=== PATIENT | female | born 1935 | race Caucasian/White ===

== ENCOUNTER 2021-08-25 11:13 | Outpatient (CLI) | payer MEDICARE, MEDICAID, SELFPAY ==
[2021-08-25 13:06] LABS: Anion Gap 10 mmol/L (8-16); Blood Urea Nitrogen 14 mg/dL (7-18); Carbon Dioxide 32 mmol/L (21-32); Chloride 101 mmol/L (98-108); Estimated Glomerular Filt Rate 59; Glucose 200 mg/dL (70-99); Osmolality Calculated 302 mOsm/kg (285-295); Potassium 3.6 mmol/L (3.5-5.1); Sodium 143 mmol/L (136-145)
== END 2021-08-25 11:14 | disposition home or self-care (01) ==
LOC: CHSLAB 11:17
PROVIDERS: PCP Family Medicine; Visit Provider Anesthesiology
DX: E11.9 Type 2 diabetes mellitus without complications (principal)
CPT/HCPCS: 36415; 80048

== ENCOUNTER 2021-08-27 00:59 | Day surgery (SDC) | payer MEDICARE, MEDICAID, SELFPAY ==
--- NOTE | 2021-08-18 15:16 | PC.NURSE ---
Report to the Outpatient Waiting Room, entrance under the green pavilion located off [facility], at time _0615_ on date _08/27/21__. OR Time: _0815__. - You and your visitor will be asked a series of questions to screen for COVID 19 for your protection. - A mask is required within the hospital. - Only one visitor is allowed at this time. Patient visitors will be guided where to wait when not with patient. Preoperative COVID Testing Requirements: No COVID Test needed if: (proof is required; if not received patient will have Rapid Test prior to entry) - Patient has received COVID Vaccine at least 14 days prior to procedure date or - Patient has positive COVID test result within last 90 days of surgery date. COVID Test needed if above criteria is not met If not COVID vaccinated a COVID test must be conducted within 72 hours of surgery and patient is asked to isolate self from time of testing until procedure. You will go to the [facility] for your COVID testing. The [facility] is located at the corner of [address] [facility]. You will only be called if COVID results are positive and your surgeon may reschedule your elective surgery date. Patients may have clear liquids (water, carbonated beverages, clear teas, apple juice) until 3 hours prior to surgery (0515 AM) with a maximum of 20 ounces. - No food from midnight until time of surgery - Infants may have breast milk until 4 hours before surgery, formula 6 hours prior to surgery. - Children will be allowed to drink immediately following surgery. If applicable, please bring a bottle or sippy cup to assist with drinking. Juice, water, soda, and popsicles are readily available. For infants on formula, please bring formula the day of surgery. Pacifiers are allowed. Take the following medications with a SIP of water the morning of surgery: ___METOPROLOL Medications to discontinue per physician __VITAMIN D3, CALTRATE Date to take last dose____08/23/21 Please no make-up, nail tuvaluan, hairspray, perfume, deodorant, or body powder the day of surgery. No jewelry (including any body piercings) or valuables the day of surgery, leave them at home. Please take a shower or bath the night before, or the morning of, surgery with an antibacterial soap. Wear comfortable, loose fitting clothing. Children are encouraged to wear pajamas. - Jewelry must be removed prior to entering the operating room. Rings and piercings that are not removed may be cut off. - The hospital will not accept responsibility for valuables. - Please leave all valuables, including medications, at home the day of surgery. If you are going home after surgery, a licensed road oiling truck driver must drive you home. - NO public transportation without another adult. - We recommend that an adult stay with you for 24 hours following discharge. - We also recommend that you do not drive, make important decision, drink alcoholic beverages, or take any drugs that were not prescribed by your health care provider for at least 24 hours after your discharge time. For Pediatric surgeries, we recommend two adults accompany the child home (only one inside the building at this time). Follow any additional instructions given to you from your surgeon. Telephone instructions given to __MIREYA___and asked if any additional questions and then verbalized understanding. Patient advised to call surgeon office or pre surgery nurse liaison [phone] if any additional questions.
[2021-08-27 07:00] VITALS: BP 167/77; PULSE 71; RESP 18; TEMP 37; O2SAT 97; BMI 39.6
--- NOTE | 2021-08-27 07:07 | P.PNAN_ITS ---
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 Patient Data Age: 86 Gender: F Height: 1.64 m Weight: Allergies Allergy/AdvReac Type Severity Reaction Status Date / Time Latex, Natural Rubber AdvReac Unknown Verified 08/18/21 14:55 Penicillins AdvReac Hives/POSSIBLE Verified 08/18/21 14:55 THROAT SWELLING Home Medications Medication Instructions Recorded Confirmed Type calcium carbonate-vitamin D3 1 tablet PO BID 08/18/21 08/18/21 History [Caltrate 600 plus D] cholecalciferol (vitamin D3) 125 mcg DAILY 08/18/21 08/18/21 History [Vitamin D3] glipizide 5 mg DAILY 08/18/21 08/18/21 History lisinopril-hydrochlorothiazide 1 tablet DAILY 08/18/21 08/18/21 History metformin 1,000 mg BID 08/18/21 08/18/21 History metoprolol succinate 25 mg PO DAILY 08/18/21 08/18/21 History potassium chloride [Klor-Con 10] 10 meq PO DAILY 08/18/21 08/18/21 History triamcinolone acetonide See Rx Instructions .ROUTE .COMPLEX 08/18/21 08/18/21 History Patient hx anesthesia problems: none Family hx anesthesia problems: none Results Review: All pre-operative results and documents have been reviewed as part of the pre-operative evaluation. [facility] Past Medical History Medical History Arthritis Dementia Diabetes Hypertension Social History Social History Smoking status: Former smoker Tobacco type: cigarettes Second hand tobacco smoke exposure: No Alcohol intake: current Alcohol use details: WINE MAYBE TWICE A YEAR Substance use: never Substance use type: does not use Living arrangements: alone Spiritual care concerns: No Anes - Eval Final PreProcedure Day of Procedure 08/27/21 07:07 Patient weight: obese Heart: regular rate and rhythm Lungs: clear to auscultation Airway: Mallampati scale class II Neurological: other (alert) Last oral intake: >/= 8 hours ASA classification: III Emergent: no Anesthetic plan: proceed Anesthesia type and monitoring: general LMA and standard monitoring Results Review: All pre-operative results and documents have been reviewed as part of the pre-operative evaluation. Informed Consent: The patient's anesthetic plan and its attendant risks and benefits were discussed with the patient/family/POA. Questions were solicited and answers provided to the satisfaction of the patient/family/POA.
--- NOTE | 2021-08-27 07:15 | WPDHPUPDATE1 ---
History and Physical Update Update Date/Time: 08/27/21 07:15 History and Physical has been reviewed, including an updated exam of the patient. There are NO changes in the patient's condition. Risks, benefits, and alternatives have been discussed and questions answered. Patient agrees to proceed with procedure.
[2021-08-27 07:27] LABS: Glucose Point of Care 124 mg/dl (65-105)
[2021-08-27] MEDS: LACTATED RINGERS 1,000 ML 30 ML IV CONT (07:30)
[2021-08-27] MEDS: BALANCED SALT SOLN OPHTH IRRIG 30 ML BTL EACH EYE (09:15)
[2021-08-27] MEDS: LIDO 1%/EPINEPHRINE 1:100,000 50 ML VIAL INFILTRATE (10:03)
[2021-08-27] MEDS: BACITRACIN OINTMENT 15 GM TUBE 1 APPLIC TOPICAL (10:04)
[2021-08-27 10:15] VITALS: BP 108/52; PULSE 65; RESP 10; O2SAT 93
[2021-08-27 10:23] LABS: Glucose Point of Care 130 mg/dl (65-105)
--- NOTE | 2021-08-27 10:34 | W.PM.PROC2 ---
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 He reported skin cancer of the left nasal sidewall, type deferred for permanent section Description of Procedure The 2 sites on the patient's face were marked in the holding area with her and her spouse is consent. She was taken to the and placed supine on the operating table. She was given IV sedation. Face was prepped and draped in usual fashion. A time-out was held and confirmed. The sites were carefully examined under loupe magnification and operating room lights. Markings were placed on the skin for planned excision. These areas were infiltrated with 1% lidocaine with epinephrine. The lesion from the nose was taken 1st with an estimated 3 mm margin this extends on the sidewall of the nose and the orbicularis towards the eye. The most superior aspect was marked with a suture for 12 o'clock. The tissue was taken off from the surface of the orbicularis and muscles of the sidewall. The specimen was sent for frozen section. The pathologist revealed that this was a skin cancer with basal and squamous cell characteristics and he is deferring is final diagnosis for permanent sections. Margins were free. The closure was accomplished by wide undermining extending more than a cm and a half in the inferior and lateral directions and over the left nasal sidewall extending to the dorsum of the nose. This process divided some of the dense nasal labial groove support fibers to the periosteum. This wide undermining allowed apposition of the wound margins without deformity to the lower lid or the nose. This approximation was retained with deep intradermal 4-0 Vicryl sutures at multiple sites in standing cone was removed from the caudal and . The skin was closed with a running 5 0 nylon. The midline upper forehead lesion was taken out as a full-thickness skin ellipse that extended into the subcutaneous tissue. The this was sent to pathology with a suture marking the superior 12:00 p.m. aspect. The report was basal cell carcinoma with free margins. The wound edges were undermined a minimum of 5 mm in all directions and the closure was achieved with intradermal 4-0 Vicryl. Glue was applied on the skin surface. There were no complications. The patient was discharged with instructions in wound care follow-up she has a prescription for tramadol 50 mg number 8 sent to her pharmacy Estimated Blood Loss 5 Drains No Packing No Pathology yes Complications No immediate complications Condition stable Disposition same day
[2021-08-27 10:45] VITALS: BP 137/59; PULSE 64; RESP 16
[2021-08-27 11:15] VITALS: BP 148/54; PULSE 60; RESP 16
== END 2021-08-27 11:25 | disposition home or self-care (01) ==
PROVIDERS: PCP Family Medicine; Visit Provider Plastic Surgery
PROC: (CPT 11641; principal; 2021-08-27 08:15)
DX: C44.319 Basal cell carcinoma of skin of other parts of face (principal); C44.311 Basal cell carcinoma of skin of nose; I10 Essential (primary) hypertension; E11.9 Type 2 diabetes mellitus without complications; F03.90 Unspecified dementia, unspecified severity, without behavioral disturbance, psychotic disturbance, mood disturbance, and anxiety; Z79.84 Long term (current) use of oral hypoglycemic drugs; E66.9 Obesity, unspecified; Z68.39 Body mass index [BMI] 39.0-39.9, adult
CPT/HCPCS: 11641; 12052; 11642; 13152; 82948; 88305; 88331; A9270; J2405; J2704; J3010; J7120

== ENCOUNTER 2023-05-10 13:05 | Outpatient (CLI) | payer MEDICARE, MEDICAID, SELFPAY ==
--- NOTE | ~2023-05-10 | XR_ITS ---
EXAMINATION: XR shoulder RT min 2V DATE: 05/10/2023 13:33 INDICATION: Right shoulder pain radiating down the right arm TECHNIQUE: AP internally and externally rotated, AP oblique externally rotated and transscapular Y vi ews of the right shoulder were obtained. COMPARISON: None FINDINGS: Normal alignment. No fracture.Mild right glenohumeral and acromioclavicular osteoarthritis. Suggesti ng mild cystlike changes in the region of the lesser tuberosity which can be seen with chronic rotato r cuff cuff disease. Soft tissues are unremarkable. Right lung volume appears small with no focal air space opacities, pleural effusion or pneumothorax. IMPRESSION: Mild right glenohumeral and acromioclavicular osteoarthritis. Reviewed, dictated and finalized at location A.
== END 2023-05-10 13:06 | disposition home or self-care (01) ==
LOC: CHSIMG 13:12
PROVIDERS: PCP Family Medicine; Visit Provider Family Medicine
DX: M25.511 Pain in right shoulder (principal); M19.011 Primary osteoarthritis, right shoulder
CPT/HCPCS: 73030

== ENCOUNTER 2023-06-21 10:07 | Emergency (ER) | payer MEDICARE, MEDICAID, SELFPAY ==
--- NOTE | ~2023-06-21 | XR_ITS ---
EXAMINATION: XR humerus RT DATE: 06/21/2023 10:43 INDICATION: Right shoulder pain. TECHNIQUE: 2 views of right humerus on 4 radiographs were obtained. COMPARISON: Right shoulder radiographs 05/10/2023 FINDINGS: Bone alignment is normal. No fracture. There is mild osteoarthritis of glenohumeral joint a nd acromioclavicular joint. IMPRESSION: 1. Mild polyarticular osteoarthritis. Reviewed, dictated and finalized at location A.
--- NOTE | ~2023-06-21 | US_ITS ---
EXAMINATION: US venous doppler UE RT DATE: 06/21/2023 10:59 INDICATION: Right upper limb swelling. TECHNIQUE: Grayscale ultrasound images without and with compression and Doppler ultrasound images of the right upper extremity veins were obtained. COMPARISON: None. FINDINGS: The visualized portions of the right internal jugular vein, subclavian vein, axillary vein, brachial veins, basilic vein, cephalic vein, radial vein, and ulnar vein are patent. IMPRESSION: 1. No deep venous thrombosis. Reviewed, dictated and finalized at location A.
--- NOTE | ~2023-06-21 | XR_ITS ---
EXAMINATION: XR shoulder RT min 2V DATE: 06/21/2023 10:43 INDICATION: Right shoulder pain. TECHNIQUE: 4 views of right shoulder were obtained. COMPARISON: Right shoulder radiographs 05/10/2023 FINDINGS: Bone alignment is normal. No fracture. There is mild osteoarthritis of right glenohumeral j oint and right acromioclavicular joint. IMPRESSION: 1. Mild polyarticular osteoarthritis. Reviewed, dictated and finalized at location A.
[2023-06-21 10:08] VITALS: BP 146/76; PULSE 76; RESP 19; TEMP 36.9; O2SAT 96
--- NOTE | 2023-06-21 10:17 | ED.GENADULT ---
HPI - General Adult General Chief complaint: Extremity Injury, Upper Stated complaint: Fall/ shoulder pain Time Seen by Provider: 06/21/23 10:09 History of Present Illness HPI narrative: 88-year-old female presenting with right upper extremity pain. Patient states he fell several weeks ago. She states she sustained injury to her right upper extremity during that time. She states her right upper extremity has been sore but her pain worsened last night. She states she felt a pop in her right upper extremity last night and had pain has increased since then. She denies any new injury to the area. Related Data Home Medications Medication Instructions Recorded Confirmed calcium carbonate 600 mg-vitamin 1 tablet PO BID 08/18/21 08/18/21 D3 20 mcg (800 unit) chewable tablet (Caltrate 600 plus D) cholecalciferol (vitamin D3) 125 125 mcg DAILY 08/18/21 08/18/21 mcg (5,000 unit) tablet (Vitamin D3) glipizide 5 mg tablet 5 mg DAILY 08/18/21 08/18/21 lisinopril 20 1 tablet DAILY 08/18/21 08/18/21 mg-hydrochlorothiazide 12.5 mg tablet metformin 1,000 mg tablet 1,000 mg BID 08/18/21 08/18/21 metoprolol succinate 25 mg 25 mg PO DAILY 08/18/21 08/27/21 tablet,extended release 24 hr potassium chloride 10 mEq 10 meq PO DAILY 08/18/21 08/18/21 tablet,extended release (Klor-Con) triamcinolone acetonide 0.1 % See Rx Instructions .Route .COMPLEX 08/18/21 08/18/21 topical cream Allergies Allergy/AdvReac Type Severity Reaction Status Date / Time Latex, Natural Rubber AdvReac Unknown Verified 06/21/23 10:21 Penicillins AdvReac Hives/POSSIBLE Verified 06/21/23 10:21 THROAT SWELLING PMFSH Past Medical History Medical History Arthritis Dementia Diabetes Hypertension Social History Social History Smoking status: Former smoker Tobacco type: cigarettes Second hand tobacco smoke exposure: No Alcohol intake: current Alcohol use details: WINE MAYBE TWICE A YEAR Substance use: never Substance use type: does not use Living arrangements: alone Spiritual care concerns: No Exam Narrative: Old-appearing bruising to the right humerus. No palpable deformities. Tenderness palpation of the humerus and right shoulder. Neurovascularly intact. All other systems otherwise unremarkable. Course Vital Signs Vital signs: Vital Signs Temperature 36.9 C 06/21/23 10:08 Pulse Rate 76 06/21/23 10:08 Respiratory Rate 19 06/21/23 10:08 Blood Pressure 146/76 H 06/21/23 10:08 Pulse Oximetry 96 06/21/23 10:08 Oxygen Delivery Room Air 06/21/23 10:08 Temperature 36.9 C 06/21/23 10:08 Pulse Rate 76 06/21/23 10:08 Respiratory Rate 19 06/21/23 10:08 Blood Pressure 146/76 H 06/21/23 10:08 Pulse Oximetry 96 06/21/23 10:08 Oxygen Delivery Room Air 06/21/23 10:08 Medical Decision Making MDM Narrative Medical decision making narrative: Differential includes but not limited to soft tissue injury versus dislocation versus fracture. Will evaluate with imaging. my interpretation and official read of imaging is without acute pathological findings. This is most likely a soft tissue injury. If symptoms persist patient will most likely benefit from an MRI. Will provide a referral to an orthopedist. We will also provide a prescription for Voltaren gel. Patient appears well. She is nontoxic appearing. He has no reflux symptomatology. She felt like proceed outpatient management. Vital Signs Vital Signs: Vital Signs Temperature 36.9 C 06/21/23 10:08 Pulse Rate 76 06/21/23 10:08 Respiratory Rate 19 06/21/23 10:08 Blood Pressure 146/76 H 06/21/23 10:08 Pulse Oximetry 96 06/21/23 10:08 Oxygen Delivery Room Air 06/21/23 10:08 Temperature 36.9 C 06/21/23 10:08 Pulse Rate 76 06/21/23 10:08 Respiratory Rate 1
[2023-06-21 11:55] VITALS: BP 140/72; PULSE 74; RESP 20; TEMP 36.8; O2SAT 97
== END 2023-06-21 11:57 | disposition home or self-care (01) ==
PROVIDERS: Emergency Provider Emergency Medicine; PCP Internal Medicine
DX: M25.511 Pain in right shoulder (principal); M79.89 Other specified soft tissue disorders; E11.9 Type 2 diabetes mellitus without complications; I10 Essential (primary) hypertension; F03.90 Unspecified dementia, unspecified severity, without behavioral disturbance, psychotic disturbance, mood disturbance, and anxiety; Z87.891 Personal history of nicotine dependence; W19.XXXA Unspecified fall, initial encounter
CPT/HCPCS: 73030; 73060; 93971; 99284; A4565

== ENCOUNTER 2023-07-05 11:58 | Emergency (ER) | payer MEDICARE, MEDICAID, SELFPAY ==
--- NOTE | ~2023-07-05 | US_ITS ---
EXAMINATION: US venous doppler [facility] DATE: 07/05/2023 13:58 INDICATION: Lower limb swelling. TECHNIQUE: Grayscale ultrasound images without and with compression and Doppler ultrasound images of the bilateral lower extremity veins were obtained. COMPARISON: None. FINDINGS: The visualized portions of right common femoral vein, profunda (deep) femoral vein, femoral vein, pop liteal vein, peroneal veins, posterior tibial veins, and greater saphenous vein outflow are patent. T here is a moderate-sized Joyce's cyst. The visualized portions of left common femoral vein, profunda femoral vein, femoral vein, popliteal v ein, peroneal veins, posterior tibial veins, and greater saphenous vein outflow are patent. IMPRESSION: 1. No deep venous thrombosis. 2. Moderate-sized right Joyce's cyst. Reviewed, dictated and finalized at location A.
--- NOTE | ~2023-07-05 | XR_ITS ---
EXAMINATION: XR chest 2V 07/05/2023 12:49 INDICATION: Bilateral leg swelling. PROCEDURE: 2 view chest COMPARISON: No prior studies for comparison. FINDINGS: The lungs are clear. The cardiomediastinal silhouette is within normal limits. There are no pleural effusions. There is no pneumothorax suspected. Severe lumbar spondylosis with scoliosis. IMPRESSION: 1: NO ACUTE CARDIOPULMONARY DISEASE. Reviewed, dictated and finalized at location B.
[2023-07-05 12:08] VITALS: BP 115/94; PULSE 77; RESP 20; TEMP 36.8; O2SAT 96
--- NOTE | 2023-07-05 12:11 | ED.EXTPRO ---
HPI - Extremity Problem General Chief complaint: Extremity Problem,Nontraumatic Stated complaint: swollen leg/feet Time Seen by Provider: 07/05/23 12:11 Source: patient Mode of arrival: ambulatory Limitations: no limitations History of Present Illness HPI Narrative: 88 year old female presents to the Emergency Department with family. Patient complains of bilateral leg swelling. Onset a week ago. Denies shortness of breath. Denies history of CHF. Denies chest pain. Patient was in [place] for 8 days. Has been on feet more recently. MD Complaint: extremity swelling Onset (ago): day(s) (8) Location: lower extremity Relieving factors: nothing Exacerbating factors: nothing Associated symptoms: denies other symptoms Context: recent travel Related Data Home Medications Medication Instructions Recorded Confirmed calcium carbonate 600 mg-vitamin 1 tablet PO BID 08/18/21 08/18/21 D3 20 mcg (800 unit) chewable tablet (Caltrate 600 plus D) cholecalciferol (vitamin D3) 125 125 mcg DAILY 08/18/21 08/18/21 mcg (5,000 unit) tablet (Vitamin D3) glipizide 5 mg tablet 5 mg DAILY 08/18/21 08/18/21 lisinopril 20 1 tablet DAILY 08/18/21 08/18/21 mg-hydrochlorothiazide 12.5 mg tablet metformin 1,000 mg tablet 1,000 mg BID 08/18/21 08/18/21 metoprolol succinate 25 mg 25 mg PO DAILY 08/18/21 08/27/21 tablet,extended release 24 hr potassium chloride 10 mEq 10 meq PO DAILY 08/18/21 08/18/21 tablet,extended release (Klor-Con) triamcinolone acetonide 0.1 % See Rx Instructions .Route .COMPLEX 08/18/21 08/18/21 topical cream Allergies Allergy/AdvReac Type Severity Reaction Status Date / Time Latex, Natural Rubber AdvReac Unknown Verified 06/21/23 10:21 Penicillins AdvReac Hives/POSSIBLE Verified 06/21/23 10:21 THROAT SWELLING Review of Systems Review of Systems: All systems reviewed & are unremarkable except as noted in HPI and below Constitutional: Constitutional: Reports as per HPI Eyes: Eyes: Reports as per HPI ENT: Reports system reviewed and no additional complaints, except as documented Cardiovascular: Cardiovascular: Reports as per HPI and Denies chest pain Respiratory: Respiratory: Reports as per HPI, Reports no additional respiratory complaints, Denies chest congestion, Denies cough and Denies dyspnea Gastrointestinal: Gastrointestinal: Reports as per HPI, Denies abdominal pain, Denies diarrhea, Denies nausea and Denies vomiting Genitourinary: Genitourinary: Reports no additional female genitourinary complaints Musculoskeletal: Musculoskeletal: Reports no additional musculoskeletal complaints Integumentary/Breasts: Skin/Breast: Reports system reviewed and no additional complaints, except as docu Neurologic: Reports system reviewed and no additional complaints, except as documented [facility] Past Medical History Medical History Arthritis Dementia Diabetes Hypertension Social History Social History Smoking status: Former smoker Tobacco type: cigarettes Second hand tobacco smoke exposure: No Alcohol intake: current Alcohol use details: WINE MAYBE TWICE A YEAR Substance use: never Substance use type: does not use Living arrangements: alone Spiritual care concerns: No Exam Const: General: healthy appearing and no acute distress Nutritional Appearance: obese Orientation/consciousness: patient oriented x3 Limitations: no limitations HENMT: Head: normal to inspection Ears: external ears normal Face/Nose/Sinus: Normal external nose present Face and sinus: normal facial exam Mouth: Yes Normal oral and palatal mucosa present Teeth and gingiva: dentition normal Throat: posterior oropharynx normal Eyes: Conjunctivae: conjunctivae normal Pupils: Equal, round and reactive pupils present EOM: EOMs intact bilaterally Direct Ophthalmoscopy: no photophobi
--- NOTE | 2023-07-05 12:16 | ECG_ITS ---
Measurements Intervals [place] Rate: 61 P: 58 [place]: 189 QRS: -50 QRSD: 90 T: 3 QT: 401 QTc: 404 Interpretive Statements SINUS RHYTHM LOW QRS VOLTAGE IN PRECORDIAL LEADS [QRS DEFLECTION < 1.0 mV IN CHEST LEADS] POSSIBLE ANTERIOR MYOCARDIAL INFARCTION , OF INDETERMINATE AGE [30 ms Q WAVE IN V3/V4, OR R < 0.2 mV IN V4] INFERIOR MYOCARDIAL INFARCTION , PROBABLY OLD WITH POSTERIOR EXTENSION [40+ ms Q WAVE AND/OR ST/T ABNORMALITY IN II/aVFPROMINE ABNORMAL ECG NO PREVIOUS ECG AVAILABLE FOR COMPARISON Electronically Signed On 07-05-2023 13:41:33 CDT by Alf Hudson M.D.
[2023-07-05 12:39] LABS: Basophils Absolute Auto 0.04 K/mm3 (0.00-0.10); Basophils Percent Auto 0.7 % (0.0-1.0); Eosinophils Percent Auto 3.4 % (1.0-6.0); Hematocrit 38.6 % (35.0-42.0); Immature Granulocyte Absolute 0.01 K/mm3 (0.00-0.00); Immature Granulocyte Percent A 0.2 % (0.0-0.0); Lymphocytes Absolute Auto 2.18 K/mm3 (1.10-4.50); Lymphocytes Percent Auto 37.2 % (18.0-42.0); Mean Corpuscular HGB Conc 33.7 g/dL (32.0-36.0); Mean Corpuscular Hemoglobin 31.3 pg (27.0-31.0); Mean Corpuscular Volume 92.8 fL (78.0-102.0); Monocytes Absolute Auto 0.53 K/mm3 (0.10-0.90); Neutrophils Absolute Auto 2.9 K/mm3 (1.7-7.2); Neutrophils Percent Auto 49.5 % (50.0-70.0); Platelet Count Result 149 K/mm3 (150-420); Red Blood Count 4.16 M/mm3 (4.20-5.40); Red Cell Distribution Width 12.7 % (11.6-14.4); White Blood Count 5.9 K/mm3 (4.8-10.8)
[2023-07-05 12:58] LABS: D Dimer 1.79 mg/L (0.19-0.50)
--- NOTE | 2023-07-05 12:58 | PC.NURSE ---
LAB REPORTS ELEVATED DDIMER OF 1.79, ERP MADE AWARE.
[2023-07-05 13:05] LABS: NT Pro B Type Natriuretic Pept 275 pg/mL (0-450)
[2023-07-05 13:13] LABS: Alanine Aminotransferase 29 U/L (14-59); Albumin Level 2.9 g/dL (3.4-5.0); Alkaline Phosphatase 67 U/L (46-116); Bilirubin,Total 0.4 mg/dL (0.00-1.00); Blood Urea Nitrogen 17 mg/dL (7-18); Calcium 9.1 mg/dL (8.5-10.1); Carbon Dioxide 25 mmol/L (21-32); Estimated CRCL calculation 41 ml/min; Estimated Glomerular Filt Rate 58; Glucose 186 mg/dL (70-99); Total Protein 6.4 g/dL (6.4-8.2)
[2023-07-05 13:14] LABS: Anion Gap 11 mmol/L (8-16); Chloride 104 mmol/L (98-108); Osmolality Calculated 296 mOsm/kg (285-295); Sodium 140 mmol/L (136-145)
[2023-07-05 13:23] LABS: Aspartate Amino Transferase 25 U/L (15-37)
[2023-07-05 14:37] VITALS: BP 178/71; PULSE 74; RESP 18; TEMP 36.4; O2SAT 98
== END 2023-07-05 14:55 | disposition home or self-care (01) ==
PROVIDERS: Emergency Provider Emergency Medicine; PCP Internal Medicine
DX: R60.0 Localized edema (principal); M71.21 Synovial cyst of popliteal space [Baker], right knee; I87.8 Other specified disorders of veins; E11.9 Type 2 diabetes mellitus without complications; I10 Essential (primary) hypertension; F03.90 Unspecified dementia, unspecified severity, without behavioral disturbance, psychotic disturbance, mood disturbance, and anxiety; Z87.891 Personal history of nicotine dependence; Z79.84 Long term (current) use of oral hypoglycemic drugs
CPT/HCPCS: 36415; 71046; 80053; 83880; 84484; 85025; 85380; 93005; 93970; 99284

== ENCOUNTER 2023-07-09 11:24 | Outpatient (CLI) | payer MEDICARE, MEDICAID, SELFPAY ==
--- NOTE | ~2023-07-09 | XR_ITS ---
Left Knee Technique: AP, lateral, and sunrise views were obtained. Clinical History: Pain Findings: No fracture or dislocation is seen. Osseous alignment is anatomic. Mild to moderate tricomp artmental degenerative changes present. Vascular calcifications are present. No joint effusion is see n. Impression: Mild to moderate tricompartmental degenerative change. Reviewed, dictated and finalized at location . Impression: Mild to moderate tricompartmental degenerative change.
--- NOTE | ~2023-07-09 | XR_ITS ---
Lumbosacral Spine: AP and lateral views Clinical History: Pain Findings: There is 26 degree dextroscoliosis of the lumbar spine. No fracture evident. There is 4 mm retrolisthesis of L2 over L3. There is moderate degenerative disc narrowing throughout the lumbar spi ne. There is moderate to severe facet arthropathy throughout the lumbar spine. The intervertebral dis c spaces are preserved. The sacroiliac joints are normally outlined. Suspected coccygeal fracture, l ikely chronic present. Extensive atherosclerotic calcifications of the aorta are present. Impression: Moderate degenerative spondylosis of the lumbar spine with 26 degree dextroscoliosis. Suspected chronic coccygeal fracture. Reviewed, dictated and finalized at location M. Impression: Moderate degenerative spondylosis of the lumbar spine with 26 degree dextroscol iosis. Suspected chronic coccygeal fracture.
--- NOTE | ~2023-07-09 | XR_ITS ---
Right Knee Technique: AP, lateral, and sunrise views were obtained. Clinical History: Pain Findings: No fracture or dislocation is seen. Osseous alignment is anatomic. Mild to moderate tricomp artmental degenerative change is present. Vascular calcifications are noted. No joint effusion is see n. Impression: Mild to moderate tricompartmental degenerative change. Reviewed, dictated and finalized at location . Impression: Mild to moderate tricompartmental degenerative change.
--- NOTE | ~2023-07-09 | XR_ITS ---
AP and lateral views of the bilateral hips Clinical history: Pain Findings: No acute fracture or dislocation is seen. Osseous alignment is anatomic. Bilateral hip and SI joint spaces are preserved. Soft tissues are unremarkable. Impression: No significant abnormality is seen. Reviewed, dictated and finalized at location . Impression: No significant abnormality is seen.
[2023-07-09 12:28] LABS: CRP 0.6 mg/dL (0.0-0.9); Thyroid Stimulating Hormone 1.16 uIU/mL (0.36-3.74); Uric Acid 5.3 mg/dL (2.6-6.0)
[2023-07-12 09:46] LABS: Hemoglobin A1C 7.5 % (<5.7)
== END 2023-07-09 11:25 | disposition home or self-care (01) ==
LOC: CHSLAB 11:27
PROVIDERS: PCP Internal Medicine; Visit Provider Internal Medicine
DX: R60.9 Edema, unspecified (principal); I10 Essential (primary) hypertension; M25.562 Pain in left knee; M25.561 Pain in right knee; M25.552 Pain in left hip; M25.551 Pain in right hip; M54.50 Low back pain, unspecified; R73.9 Hyperglycemia, unspecified; M43.06 Spondylolysis, lumbar region
CPT/HCPCS: 36415; 72100; 73521; 73562; 83036; 84443; 84550; 86140

== ENCOUNTER 2023-07-12 16:38 | Outpatient (CLI) | payer MEDICARE, MEDICAID, SELFPAY ==
[2023-07-12 16:48] LABS: Appearance Urine Clear (Clear); Bilirubin Urine Negative (Negative); Blood Urine Negative (Negative); Color Urine Yellow (Yellow); Glucose Urine UA Negative (Negative); Ketones Urine Negative (Negative); Leukocyte Esterase Ur Negative (Negative); Nitrate Urine Negative (Negative); Protein Urine Negative (Negative); Urobilinogen Urine 0.2 mg/dL (0.2-1.0); pH Urine 5.5 (5.0-8.0)
[2023-07-12 17:05] LABS: Add Urine Microscopic? NO
== END 2023-07-12 16:39 | disposition home or self-care (01) ==
LOC: CHSLAB 16:39
PROVIDERS: PCP Internal Medicine; Visit Provider Internal Medicine
DX: R60.9 Edema, unspecified (principal); I10 Essential (primary) hypertension; M25.552 Pain in left hip; M25.551 Pain in right hip; M25.562 Pain in left knee; M25.561 Pain in right knee; M54.50 Low back pain, unspecified
CPT/HCPCS: 81003

== ENCOUNTER 2024-03-20 01:26 | Emergency (ER) | payer MEDICARE, MEDICAID, SELFPAY ==
[2024-03-20] VITALS (32 sets, daily range): BP systolic 107–192; BP diastolic 57–135; PULSE 69–88; RESP 9–26; TEMP 36.5; O2SAT 94–98
--- NOTE | ~2024-03-20 | CT_ITS ---
CT head without contrast Indication: CVA, right-sided facial droop Technique: Serial scans were obtained through the brain without the administration of contrast. Dose reduction technique was used on this scan by utilizing automated exposure control and iterative recon struction technique. The dose-length product (DLP) was 605.33 mGy-cm. Findings: There is no evidence of intracranial hemorrhage, mass lesion, or acute infarct. The ventri cles and subarachnoid spaces are dilated, consistent with mild atrophy. There is no evidence of edema , mass effect or midline shift. The visualized paranasal sinuses and mastoid air cells are clear. Impression: No intracranial hemorrhage, mass, or acute infarct. Mild generalized atrophy. Reviewed, dictated and finalized at location . Impression: No intracranial hemorrhage, mass, or acute infarct. Mild generalized atrophy.
--- NOTE | ~2024-03-20 | CT_ITS ---
CT ANGIOGRAM NECK AND HEAD History: Right-sided facial droop, CVA. Technique: Serial spiral axial images through the head and neck were obtained during arterial phase I V injection of 100 cc of Omnipaque 350. 3-D postprocessing and MIP images were then reconstructed on the remote workstation. Dose reduction technique was used on this scan by utilizing automated exposur e control and iterative reconstruction technique. The dose-length product (DLP) was 982.20 mGy-cm. CTA neck findings: Bilateral vertebral arteries are patent, the right vertebral artery is diffusely, markedly hypoplastic. Aberrant right subclavian artery noted. Bilateral common carotid, internal car otid, and external carotid arteries are patent. There is calcified plaque at the origin of the left i nternal carotid artery with high-grade probable 80-90% stenosis focally. No stenosis of the right int ernal carotid artery. No large vessel occlusion. No aneurysm. The proximal right internal carotid art ld demonstrates 0% stenosis relative to the normal distal artery lumen diameter. The proximal left i nternal carotid artery demonstrates 80-90% stenosis relative to the normal distal artery lumen diamet er. CTA head findings: Basilar artery and posterior vertebral arteries are patent. There are atherosclero tic calcifications of the cavernous portions of the distal internal carotid arteries, with areas of m ild stenosis. Middle cerebral arteries and anterior cerebral arteries are patent. No large vessel occ lusion. No stenosis or aneurysm. 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 Consider duplex sonograph for further evaluation. No large vessel occlusion identified. Consider MR to further evaluate for acute infarct. Hypoplastic right vertebral artery. Reviewed, dictated and finalized at location . Impression: Probable focal high-grade stenosis at the origin of the left internal carotid a rtery. Consider duplex sonograph for further evaluation. No large vessel occlusion identified. Consider MR to further evaluate for acute infarct. Hypoplastic right vertebral artery.
--- NOTE | 2024-03-20 01:29 | ED.GENADULT ---
HPI - General Adult General Chief complaint: Suspected CVA Stated complaint: stroke symptoms Time Seen by Provider: 03/20/24 01:28 History of Present Illness HPI narrative: Leah is an 88F with a PMH of DMII, HTN, arthritis and dementia that presented to the ED via EMS for concerns of a CVA. She went to bed 3 hours before arrival and woke up not feeling normal. She had right sided facial droop, slurred speech and weakness on the right side in the upper and lower extremity. No Related Data Home Medications Medication Instructions Recorded Confirmed calcium carbonate 600 mg-vitamin 1 tablet PO BID 08/18/21 03/20/24 D3 20 mcg (800 unit) chewable tablet (Caltrate 600 plus D) cholecalciferol (vitamin D3) 125 125 mcg DAILY 08/18/21 03/20/24 mcg (5,000 unit) tablet (Vitamin D3) glipizide 5 mg tablet 5 mg DAILY 08/18/21 03/20/24 lisinopril 20 1 tablet DAILY 08/18/21 03/20/24 mg-hydrochlorothiazide 12.5 mg tablet metformin 1,000 mg tablet 1,000 mg BID 08/18/21 03/20/24 metoprolol succinate 25 mg 25 mg PO DAILY 08/18/21 03/20/24 tablet,extended release 24 hr potassium chloride 10 mEq 10 meq PO DAILY 08/18/21 03/20/24 tablet,extended release (Klor-Con) triamcinolone acetonide 0.1 % See Rx Instructions .Route .COMPLEX 08/18/21 03/20/24 topical cream Allergies Allergy/AdvReac Type Severity Reaction Status Date / Time Latex, Natural Rubber AdvReac Unknown Verified 03/20/24 01:41 Penicillins AdvReac Hives/POSSIBLE Verified 03/20/24 01:41 THROAT SWELLING Review of Systems Review of Systems: All systems reviewed & are unremarkable except as noted in HPI and below PMFSH Past Medical History Medical History Arthritis Dementia Diabetes Hypertension Social History Social History Smoking status: Former smoker Tobacco type: cigarettes Second hand tobacco smoke exposure: No Alcohol intake: current Alcohol use details: WINE MAYBE TWICE A YEAR Substance use: never Substance use type: does not use Living arrangements: alone Spiritual care concerns: No Exam Const: General: cooperative, comfortable, well developed, alert, awake and Physically active Orientation/consciousness: oriented to person, oriented to place and oriented to time HENMT: Head: normal to inspection, normocephalic and atraumatic Ears: hearing grossly normal bilaterally and external ears normal Face/Nose/Sinus: Normal external nose present Eyes: General: appearance normal, both eyes and all related structures Periorbital: periorbital findings normal Sclera: sclerae normal Pupils: Equal, round and reactive pupils present Neck: Neck: normal visual inspection Chest: Chest palpation & inspection: normal inspection of the chest Resp: Effort & Inspection: normal respiratory effort, able to speak in complete sentences and no respiratory distress Auscultation: clear to auscultation bilaterally Cardio: Jugular venous distension: no JVD Rate: regular rate Rhythm: regular rhythm GI: Inspection: normal to inspection GI Palp: Yes Soft to palpation Auscultation: normal bowel sounds Skin: General skin exam: normal color and no rashes or lesions noted Neuro: General: oriented to person and oriented to place Cranial nerves: Yes Equal, round and reactive pupils present Other: She had right sided facial paralysis/droop, right sided weakness in the upper and lower extremities and slurred speech. NIH stroke scale of 8. Extrem: General: normal to inspection Course Course Emergency Course: Ordered stat CT brain for suspected CVA. Ordered labs and EKG as well. EKG showed NSR with a rate of 76, first degree AV block, left anterior fasicular block CT Brain: No intracranial hemorrhage, mass effect or edema. No evidence of acute cortical stroke. Age-related cerebral atrophy. Chronic small vessel
--- NOTE | 2024-03-20 01:34 | ECG_ITS ---
Test Date: 2024-03-20 01:44:36 Measurements Intervals [place] Rate: 76 P: 23 [place]: 256 QRS: -70 QRSD: 108 T: 21 QT: 369 QTc: 417 Interpretive Statements SINUS RHYTHM WITH FIRST DEGREE AV BLOCK LOW QRS VOLTAGE IN PRECORDIAL LEADS [QRS DEFLECTION < 1.0 mV IN CHEST LEADS] LEFT ANTERIOR FASCICULAR BLOCK [QRS AXIS <= -45, QR IN I, RS IN II] POSSIBLE ANTERIOR MYOCARDIAL INFARCTION , PROBABLY OLD [30 ms Q WAVE IN V3/V4, OR R < 0.2 mV IN V4] No previous ECG available for comparison Electronically Signed On 03-21-2024 13:20:05 CDT by Hamzah Alegria M.D.
[2024-03-20 01:36] LABS: Glucose Point of Care 270 mg/dl (65-105)
[2024-03-20 02:19] LABS: Basophils Absolute Auto 0.05 K/mm3 (0.00-0.10); Basophils Percent Auto 0.9 % (0.0-1.0); Eosinophils Absolute Auto 0.22 K/mm3 (0.02-0.50); Eosinophils Percent Auto 3.7 % (1.0-6.0); Hematocrit 41.6 % (35.0-42.0); Hemoglobin 13.6 g/dL (11.7-13.8); Immature Granulocyte Absolute 0.01 K/mm3 (0.00-0.00); Immature Granulocyte Percent A 0.2 % (0.0-0.0); Immature Platelet Fraction Pct 3.5 % (1.0-7.0); Lymphocytes Absolute Auto 2.22 K/mm3 (1.10-4.50); Lymphocytes Percent Auto 37.8 % (18.0-42.0); Mean Corpuscular HGB Conc 32.7 g/dL (32-36); Mean Corpuscular Hemoglobin 29.8 pg (27.0-31.0); Mean Corpuscular Volume 91.2 fL (78.0-102.0); Mean Platelet Volume 11.3 fl (9.2-11.8); Monocytes Absolute Auto 0.56 K/mm3 (0.10-0.90); Monocytes Percent Auto 9.5 % (2.0-11.0); Neutrophils Absolute Auto 2.81 K/mm3 (1.70-7.20); Neutrophils Percent Auto 47.9 % (50.0-70.0); Platelet Count Result 131 K/mm3 (150-420); Red Blood Count 4.56 M/mm3 (4.20-5.40); Red Cell Distribution Width 12.1 % (11.6-14.4); White Blood Count 5.9 K/mm3 (4.8-10.8)
[2024-03-20 02:29] LABS: Prothrombin Time 10.7 Seconds (9.50-12.1)
[2024-03-20 02:50] LABS: Alanine Aminotransferase 26 U/L (14-59); Albumin Level 3.2 g/dL (3.4-5.0); Alkaline Phosphatase 64 U/L (46-116); Anion Gap 9 mmol/L (4-12); Aspartate Amino Transferase 27 U/L (15-37); Bilirubin,Total 0.3 mg/dL (0.00-1.00); Blood Urea Nitrogen 22 mg/dL (7-18); Carbon Dioxide 26 mmol/L (21-32); Chloride 104 mmol/L (98-108); Estimated CRCL calculation 35 ml/min; Estimated Glomerular Filt Rate 50; Glucose 238 mg/dL (70-99); Osmolality Calculated 299 mOsm/kg (285-295); Potassium 3.6 mmol/L (3.5-5.1); Sodium 139 mmol/L (136-145); Troponin I 6.2 ng/L (0.00-60.4)
[2024-03-20 03:59] LABS: Appearance Urine Clear (Clear); Bilirubin Urine Negative (Negative); Blood Urine 1+ (Negative); Color Urine Light Yellow (Yellow); Glucose Urine UA 1+ (Negative); Ketones Urine Negative (Negative); Leukocyte Esterase Ur 2+ LEU/UL (Negative); Nitrate Urine Negative (Negative); Protein Urine Negative (Negative); Specific Grav Ur 1.015 (1.010-1.020); Urobilinogen Urine 0.2 mg/dL (0.2-1.0)
[2024-03-20 04:08] LABS: Add Urine Microscopic? YES; Bacteria Urine 2+ /hpf; Squamous Epithelial Cell Urine Occasional /hpf (Few); WBC Clumps Urine Present /hpf; WBC Urine >100 /hpf (0-3)
--- NOTE | 2024-03-23 13:03 | PC.NURSE ---
Final urine culture report faxed to [facility]. Patient is in ICU A4. [phone]
== END 2024-03-20 04:18 | disposition short-term general hospital (02) ==
PROVIDERS: Emergency Provider Family Medicine; PCP Internal Medicine
DX: I63.9 Cerebral infarction, unspecified (principal); E11.9 Type 2 diabetes mellitus without complications; I10 Essential (primary) hypertension; F03.90 Unspecified dementia, unspecified severity, without behavioral disturbance, psychotic disturbance, mood disturbance, and anxiety; Z87.891 Personal history of nicotine dependence
CPT/HCPCS: 36415; 70450; 70496; 70498; 80053; 81001; 82948; 84484; 85025; 85055; 85610; 87077; 87086; 87088; 93005; 99285; Q9967

== ENCOUNTER 2024-05-01 10:04 | Inpatient (IN) | payer MEDICARE, MEDICAID, SELFPAY ==
[2024-05-01] VITALS (15 sets, daily range): BP systolic 53–109; BP diastolic 28–66; PULSE 79–130; RESP 18–34; TEMP 36.1–37.2; O2SAT 92–100; BMI 23.6
--- NOTE | 2024-05-01 10:15 | ED.GIBLEED ---
HPI - GI Bleed General Chief complaint: GI Bleed Stated complaint: GI Bleeding Time Seen by Provider: 05/01/24 10:15 Source: family and EMS Mode of arrival: EMS Limitations: altered mental status and clinical condition History of Present Illness HPI Narrative: 89 years old white female came from group home , unresponsive, depend full of blood, fresh red bright blood noticed at 9:30 a.m. this morning. With low blood pressure. History of recent CVA and GI bleed of unknown source. According to the family and group home reported that patient is oriented to her name only, DNR. patient's son and daughter in low agreed with comfort measures only, including IV fluid, oxygen and pain medication. And do not treat any active medical condition at this time including blood transfusion or GI workup. They would like to keep the patient in the hospital instead send her back to group home Patient currently on aspirin and Xarelto Related Data Home Medications Medication Instructions Recorded Confirmed cholecalciferol (vitamin D3) 125 125 mcg DAILY 08/18/21 05/01/24 mcg (5,000 unit) tablet (Vitamin D3) Allergies Allergy/AdvReac Type Severity Reaction Status Date / Time Latex, Natural Rubber AdvReac Unknown Verified 05/01/24 11:07 Penicillins AdvReac Hives/POSSIBLE Verified 05/01/24 11:07 THROAT SWELLING Review of Systems Review of Systems: ROS unobtainable: Yes unobtainable due to medical condition and unobtainable due to mental status PMFSH Past Medical History Medical History (Updated 05/01/24 @ 12:07 by Marlo Antonio MD) Arthritis Dementia Hypertension Social History Social History Smoking status: Former smoker Tobacco type: cigarettes Second hand tobacco smoke exposure: No Alcohol intake: current Alcohol use details: WINE MAYBE TWICE A YEAR Substance use: never Substance use type: does not use Living arrangements: alone Spiritual care concerns: No Exam Narrative: General appearance: Well-developed, well-nourished, unresponsive to verbal commands Skin: pale Head: Normocephalic, nontraumatic Eyes: Clear conjunctiva ENT: edentulous Neck: Supple, nontender Chest and respiratory: Airway patent, no respiratory distress, no accessory muscle use Heart: tachycardia, regular Abdomen: Soft, nontender, no organomegaly, quiet bowel sounds Vascular: weak thready peripheral pulses Musculoskeletal: Neurologic: unresponsive to verbal commands Course Vital Signs Vital signs: Vital Signs Temperature 37.2 C 05/01/24 10:04 Pulse Rate 121 H 05/01/24 10:04 Respiratory Rate 28 H 05/01/24 10:04 Blood Pressure 71/39 L 05/01/24 10:04 Pulse Oximetry 93 05/01/24 10:04 Oxygen Delivery Room Air 05/01/24 10:04 Oxygen Flow Rate 4 05/01/24 10:04 Temperature 37.2 C 05/01/24 10:04 Pulse Rate 96 05/01/24 11:24 Respiratory Rate 22 H 05/01/24 11:24 Blood Pressure 91/39 L 05/01/24 10:45 Pulse Oximetry 94 05/01/24 11:24 Oxygen Delivery Nasal Cannula 05/01/24 10:10 Oxygen Flow Rate 4 05/01/24 11:24 MDM - GI Bleed MDM Narrative Medical decision making narrative: 89 years old white female came from group home with possible GI bleed, low blood pressure, tachycardia, unresponsive to verbal commands Vital signs on arrival showed blood pressure of 71/39, heart rate of 121, temperature of 37.2? Physical examination showed unresponsive patient to verbal commands, and pale Differential diagnosis include GI bleed, vaginal bleed, anemia,sepsis, coagulopathy secondary to Xarelto and anti-platelet medication, Talk
[2024-05-01] MEDS: SODIUM CHLORIDE 0.9% IV 2,000 ML 999 ML IV CONT (10:37)
[2024-05-01 10:39] LABS: Hematocrit 35.7 % (35.0-42.0); Hemoglobin 11.2 g/dL (11.7-13.8); Mean Corpuscular HGB Conc 31.4 g/dL (32-36); Mean Corpuscular Hemoglobin 28.4 pg (27.0-31.0); Mean Corpuscular Volume 90.6 fL (78.0-102.0); Mean Platelet Volume 11.2 fl (9.2-11.8); Platelet Count Result 388 K/mm3 (150-420); Red Blood Count 3.94 M/mm3 (4.20-5.40); Red Cell Distribution Width 15.7 % (11.6-14.4)
[2024-05-01] MEDS: MORPHINE SULFATE (*CRX) 2 MG/ML INJ IV PUSH ×2 (10:39→14:02)
[2024-05-01] MEDS: ONDANSETRON INJ 4 MG/2 ML VIAL IV PUSH (10:42)
[2024-05-01] MEDS: PANTOPRAZOLE SODIUM IV 40 MG VIAL IV PUSH (10:43)
[2024-05-01 10:54] LABS: INR 1.2; Partial Thromboplastin Time 29.8 Sec (23.9-30.70); Prothrombin Time 12.7 Seconds (9.50-12.1)
[2024-05-01 11:00] LABS: Band Neutrophils Percent 4 % (0-6); Lymphocytes Absolute Manual 0.87 K/mm3 (1.1-4.5); Lymphocytes Percent Manual 3 % (18-44); Monocytes Absolute Manual 1.16 K/mm3 (0.1-0.90); Monocytes Percent Manual 4 % (3-9); Neutrophils Absolute Manual 26.97 K/mm3 (1.7-7.2); Neutrophils Percent Manual 89 % (46-73); Platelet Estimate Adequate (Adequate); Total Cells Counted 100
--- NOTE | 2024-05-01 11:05 | PC.NURSE ---
Multiple family members at bedside. New DNR for obtained. Pt is comfort care only. Family requesting admission to [facility]. Awaiting hospitalist to return call. IVF continuing to infuse, as ordered, w/o difficulty. BP remains low, EDP aware. No rectal bleeding noted at this time. Will continue to monitor.
--- NOTE | 2024-05-01 11:37 | PC.NURSE ---
Pt has been accepted to RM 203. Family is aware. No change in pt status from previous reassessment.
[2024-05-01 11:55] LABS: Albumin Level 2.9 g/dL (3.5-5.1); Alkaline Phosphatase 75 U/L (38-126); Anion Gap 17 mmol/L (4-12); Aspartate Amino Transferase 56 U/L (14-36); Bilirubin,Total 0.7 mg/dL (0.2-1.3); Blood Urea Nitrogen 42 mg/dL (7-17); Calcium 8.1 mg/dL (8.4-10.2); Carbon Dioxide 21 mmol/L (22-30); Chloride 94 mmol/L (98-107); Estimated CRCL calculation 17 ml/min; Estimated Glomerular Filt Rate 28; Glucose 265 mg/dL (65-110); Osmolality Calculated 293 mOsm/kg (285-295); Potassium 2.3 mmol/L (3.4-5.0); Sodium 132 mmol/L (137-145)
--- NOTE | 2024-05-01 12:03 | PC.NURSE ---
erp spoke with family, they have elected to not treat the hypokalemia
--- NOTE | 2024-05-01 12:15 | PC.NURSE ---
Patient admitted to room 203 as comfort care. Discussed with family protocol of comfort care, and that family is to notify nurse of any acute changes with patient. Patient is not alert or oriented. Call light shown to family and in reach. Patient resting in bed, hob elevated.
[2024-05-01 12:21] LABS: Alanine Aminotransferase 27 U/L (6-35)
[2024-05-01] MEDS: SCOPOLAMINE 1 MG PATCH 1 PATCH TRANSDERM (14:01)
[2024-05-01] MEDS: LORazepam INJ (*CRX) 2 MG/ML VIAL 0.5 MG IV PUSH (15:16)
--- NOTE | 2024-05-01 15:37 | PM.IMHP ---
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 She was at [facility] for her stroke in February with a prolonged hospitalization complicated by a GI bleed. On 05/01 she presented to [facility] emergency room after staff at the alf found she had a large bloody bowel movement with clots present. Her son provides the history and it is supplemented via the EMR as the patient is resting and asleep when she presented to the medical unit and she has expressive asphasia. The ED physician spoke with the family regarding the patient's presentation, comorbidities, and quality of life and it was decided by the family that they would seek no further work up and would like to be admitted for comfort care measures. Given the patient's current hemodynamic instability it was decided that the patient would receive comfort measures for now. If the patient does not pass away through the night then hospice can be formally consulted. All questions and concerns were discussed with the family. Review of Systems Review of Systems: ROS unobtainable: Yes unobtainable due to medical condition PMFSH Past Medical History Medical History (Updated 05/01/24 @ 15:47 by Risa Brooks APRN) Afib Arthritis CVA (cerebral vascular accident) Dementia Hypertension Type 2 diabetes mellitus Social History Social History Smoking packs per day: 1 Smoking cigarettes per day: 20.0 Years smoked: 20 Smoking pack-years: 20.00 Smoking status: Former smoker Tobacco type: cigarettes Second hand tobacco smoke exposure: No Smoking end date: 04/27/24 Alcohol intake: unknown Alcohol use details: WINE MAYBE TWICE A YEAR Substance use: never Substance use type: does not use Living arrangements: alone Spiritual care concerns: No Meds Home Medications and Allergies Home Medications Medication Instructions Recorded Confirmed Type cholecalciferol (vitamin D3) 125 125 mcg DAILY 08/18/21 05/01/24 History mcg (5,000 unit) tablet (Vitamin D3) hydrocodone 5 mg-acetaminophen 325 1 tablet PO Q8H PRN pain #90 tabs 07/30/24 08/05/24 Rx mg tablet ascorbic acid (vitamin C) 500 mg 500 mg PO BID #90 tabs 04/26/24 05/01/24 Rx tablet aspirin 81 mg tablet,delayed 81 mg PO DAILY #90 tabs 04/26/24 05/01/24 Rx release (Adult Aspirin Regimen) atorvastatin 40 mg tablet 40 mg PO QHS #90 tabs 04/26/24 05/01/24 Rx banana See Rx Instructions PO TID #75 ea 04/26/24 05/01/24 Rx flakes-transgalactooligosaccharide oral powder packet (Banatrol Plus oral powder packet) calcium carbonate (Calcium 600) 600 mg PO DAILY #90 tabs 04/26/24 05/01/24 Rx chromium 200 mcg-brindal langley 500 1 tablet PO ONCE #90 tabs 04/26/24 05/01/24 Rx mg tablet (Garcinia Cambogia) lactose-reduced food with fiber See Rx Instructions .Route 04/26/24 05/01/24 Rx 0.06 gram-1.5 kcal/mL oral liquid .COMPLEX #237 mL (Jevity 1.5 John) lisinopril 10 1 tablet PO DAILY #90 tabs 04/26/24 05/01/24 Rx mg-hydrochlorothiazide 12.5 mg tablet (Zestoretic) metoprolol tartrate 25 mg tablet 12.5 mg PO BID #90 tabs 04/26/24 05/01/24 Rx omeprazole magnesium 10 mg oral 20 mg PO DAILY #30 ea 04/26/24 05/01/24 Rx suspension,delayed release protein (ProSource oral powder) See Rx Instructions PO .COMPLEX 04/26/24 05/01/24 Rx #454 grams rivaroxaban 20 mg tablet 20 mg PO QPM #90 tabs 04/26/24 05/01/24 Rx semaglutide 3 mg tablet 3 mg PO DAILY 30 days #30 tabs 04/26/24 05/01/24 Rx sucralfate 1 gram tablet See Rx Instructions .Route 04/26/24 05/01/24 Rx .COMPLEX #90 tabs vitamin A 2,400 mcg capsule 2,400 mcg PO DAILY #90 caps 04/26/24 05/01/24 Rx gabapentin 250 mg/5 mL (5 mL)
--- NOTE | 2024-05-01 17:25 | PC.NURSE ---
Pt was turned and positioned to right side at 1700, shortly after family notified staff that she was bleeding . Noted blood/mucous in depend and out onto pad, foul odor. Approximately 100ml bright red blood/mucous. [place] care provided, clean and dry, remains on right side, family states she is more comfortable on her right side. Pt calm, eyes closed. Pt did grab ahold of the side rail and helped pull her self over. Pillows placed in between knees, and under feet/hands for comfort and positioning. Pt has several visitors in room.
[2024-05-02] MEDS: LORazepam INJ (*CRX) 2 MG/ML VIAL 0.5 MG IV PUSH ×3 (01:11→15:43)
[2024-05-02 05:30] VITALS: O2SAT 92
[2024-05-02] MEDS: MORPHINE SULFATE (*CRX) 2 MG/ML INJ IV PUSH ×3 (05:50→15:44)
[2024-05-02 08:00] VITALS: BP 69/34; PULSE 106; RESP 20; TEMP 36.4; O2SAT 95
--- NOTE | 2024-05-02 08:43 | WPDPN ---
Progress Note: A&P Assessment and Plan (1) End of life care: Code(s): Z51.5 - Encounter for palliative care Status: Acute Assessment and Plan: hospice consulted Ativan Morphine oxygen Plan Discussed with family about hospice and what they would like and who they would like at this time they are happy with care and would be willing to hear from hospice not totally sold they they need them at this time Subjective Date/time seen: 05/02/24 08:43 Interval history: Patient is non responsive and she is on oxygen. Patient has good color and tugor is well. Patient family is at the bedside and hospice has been consulted. Patient is hypotensive and tachycardic. We will continue to monitor Exam Narrative: General appearance: Well-developed, well-nourished, unresponsive to verbal commands Skin: pale Head: Normocephalic, nontraumatic Eyes: Clear conjunctiva ENT: edentulous Neck: Supple, nontender Chest and respiratory: Airway patent, no respiratory distress, no accessory muscle use Heart: tachycardia, regular Abdomen: Soft, nontender, no organomegaly, quiet bowel sounds Vascular: weak thready peripheral pulses Musculoskeletal: Neurologic: unresponsive to verbal commands Objective Data Vital Signs Vital Signs: Vital Signs - 24 hr 05/01/24 10:04 05/01/24 10:10 05/01/24 10:04 Temperature 98.9 F Pulse Rate 121 H Respiratory Rate 28 H 30 H Blood Pressure 71/39 L Pulse Oximetry 93 96 93 Oxygen Delivery Room Air Nasal Cannula Nasal Cannula Oxygen Flow Rate 4 4 05/01/24 10:08 05/01/24 10:15 05/01/24 10:31 Temperature Pulse Rate 108 H 130 H 122 H Respiratory Rate 29 H 29 H 34 H Blood Pressure 71/39 L 109/66 74/35 L Pulse Oximetry 94 95 97 Oxygen Delivery Oxygen Flow Rate 05/01/24 10:45 05/01/24 11:24 05/01/24 11:01 Temperature Pulse Rate 101 H 96 110 H Respiratory Rate 30 H 22 H 25 H Blood Pressure 91/39 L 53/40 L Pulse Oximetry 95 94 97 Oxygen Delivery Nasal Cannula Oxygen Flow Rate 4 4 05/01/24 11:15 05/01/24 11:30 05/01/24 11:45 Temperature Pulse Rate 105 H 102 H 95 Respiratory Rate 24 H 21 H 24 H Blood Pressure 73/63 L 80/55 L 85/28 L Pulse Oximetry 95 97 97 Oxygen Delivery Oxygen Flow Rate 05/01/24 12:01 05/01/24 14:00 05/01/24 20:00 Temperature 97.0 F L 98.3 F Pulse Rate 105 H 82 79 Respiratory Rate 25 H 18 18 Blood Pressure 99/41 L 87/37 L 67/53 L Pulse Oximetry 100 96 92 Oxygen Delivery Nasal Cannula Nasal Cannula Oxygen Flow Rate 2 2 05/01/24 12:00 05/02/24 08:00 Temperature 97.5 F L Pulse Rate 106 H Respiratory Rate 20 Blood Pressure 69/34 L Pulse Oximetry 96 95 Oxygen Delivery Nasal Cannula Oxygen Flow Rate 4 Intake/Output Intake/Output: Intake & Output 04/29/24 04/30/24 05/01/24 05/02/24 23:59 23:59 23:59 23:59 Intake Total 1999 0 Output Total 0 Balance 1999 0 Meds/Results Medications: Active Medications Generic Name Dose Route Start Last Admin Trade Name Freq PRN Reason Stop Dose Admin Atropine Sulfate 1 drop 05/01/24 12:24 Atropine Sulfate 1% Ophth Soln 5 Ml Bottle SUBLINGUAL Q4H PRN Secretions Lorazepam 0.5 mg 05/01/24 12:24 05/02/24 01:11 Lorazepam Inj (*Crx) 2 Mg/Ml Vial IV PUSH 0.5 mg Q1HR PRN Administration tachypnea Morphine Sulfate 2 mg 05/01/24 12:24 05/02/24 05:50 Morphine Sulfate (*Crx) 2 Mg/Ml Inj IV PUSH 2 mg Q1HR PRN Administration pain/discomfort (for hospice) Ondansetron HCl 4 mg 05/01/24 15:53 Ondansetron Inj 4 Mg/2 Ml Vial IV PUSH Q4H PRN Nausea And Vomiting Scopolamine 1 patch 05/01/24 13:00 05/01/24 14:01
--- NOTE | 2024-05-02 11:30 | PC.NURSE ---
Pt's son came to nurses desk and explained how his interaction with Amira ([facility]) did not go well. He stated she was not giving him options, just telling him how things were going to happen. Son/poa stated he thought they would be happier without hospice and would just continue care the way it is currently.
--- NOTE | 2024-05-02 14:02 | PC.NURSE ---
Patient changed from obs to inpatient status.
[2024-05-02 23:54] VITALS: RESP 24; TEMP 36.4
--- NOTE | 2024-05-03 05:00 | PC.NURSE ---
Patient has rested comfortably with respirations even and unlabored tonight. T&P for comfort. No rectal bleeding noted. Patient has not voided this shift. Family has slept in bed A all night.
[2024-05-03] MEDS: MORPHINE SULFATE (*CRX) 2 MG/ML INJ IV PUSH ×2 (06:19→10:38)
[2024-05-03] MEDS: LORazepam INJ (*CRX) 2 MG/ML VIAL 0.5 MG IV PUSH ×2 (06:20→10:37)
--- NOTE | 2024-05-03 06:25 | PC.NURSE ---
Patient getting restless and starting to pull @ sheet and night gown. Mouth care done and lip balm applied. Patient repositioned. No voiding noted this shift. No rectal bleeding noted. Family sleeping in bed A.
--- NOTE | 2024-05-03 07:38 | PM.IMPN ---
Progress Note: A&P Assessment and Plan (1) End of life care: Code(s): Z51.5 - Encounter for palliative care Status: Acute Assessment and Plan: hospice consulted Ativan Morphine oxygen Plan Discussed with family about hospice and what they would like and who they would like at this time they are happy with care and would be willing to hear from hospice not totally sold they they need them at this time Family declined [facility] hospice yesterday. We will continue to monitor Subjective Date/time seen: 05/03/24 07:38 Interval history: comfort measure patient seems to be holding her own we may need consider patient going back to senior care or they may need to choose a hospice that has in hospital beds. Review of Systems Review of Systems: All systems reviewed & are unremarkable except as noted in HPI and below Exam Narrative: General appearance: Well-developed, well-nourished, unresponsive to verbal commands Skin: pale Head: Normocephalic, nontraumatic Eyes: Clear conjunctiva ENT: edentulous Neck: Supple, nontender Chest and respiratory: Airway patent, no respiratory distress, no accessory muscle use Heart: tachycardia, regular Abdomen: Soft, nontender, no organomegaly, quiet bowel sounds Vascular: weak thready peripheral pulses Musculoskeletal: Neurologic: unresponsive to verbal commands Objective Data Vital Signs Vital Signs: Vital Signs - 24 hr 05/02/24 08:00 05/02/24 23:54 Temperature 97.5 F L 97.6 F Pulse Rate 106 H Respiratory Rate 20 24 H Blood Pressure 69/34 L Pulse Oximetry 95 Oxygen Delivery Nasal Cannula Nasal Cannula Oxygen Flow Rate 4 4 Intake/Output Intake/Output: Intake & Output 04/30/24 05/01/24 05/02/24 05/03/24 23:59 23:59 23:59 23:59 Intake Total 1999 0 0 Output Total 0 Balance 1999 0 0 Meds/Results Medications: Active Medications Generic Name Dose Route Start Last Admin Trade Name Freq PRN Reason Stop Dose Admin Atropine Sulfate 1 drop 05/01/24 12:24 Atropine Sulfate 1% Ophth Soln 5 Ml Bottle SUBLINGUAL Q4H PRN Secretions Lorazepam 0.5 mg 05/01/24 12:24 05/03/24 06:20 Lorazepam Inj (*Crx) 2 Mg/Ml Vial IV PUSH 0.5 mg Q1HR PRN Administration tachypnea Morphine Sulfate 2 mg 05/01/24 12:24 05/03/24 06:19 Morphine Sulfate (*Crx) 2 Mg/Ml Inj IV PUSH 2 mg Q1HR PRN Administration pain/discomfort (for hospice) Ondansetron HCl 4 mg 05/01/24 15:53 Ondansetron Inj 4 Mg/2 Ml Vial IV PUSH Q4H PRN Nausea And Vomiting Scopolamine 1 patch 05/01/24 13:00 05/01/24 14:01 Scopolamine 1 Mg Patch TRANSDERM 1 patch Q72HR JD Administration
[2024-05-03 08:00] VITALS: BP 84/47; PULSE 112; RESP 20; TEMP 36.3; O2SAT 89
--- NOTE | 2024-05-03 11:49 | P.DS_ITS ---
DS: Admitting Diagnosis Discharge Date /05/03/2024/ Admitting Diagnosis gi bleed , hospice end of life care . DS: Discharge Diagnosis Discharge Diagnosis (1) End of life care: Code(s): Z51.5 - Encounter for palliative care Status: Acute Assessment and Plan: switching to residential hospoice Morphine, Atian supplemental oxygen Family at the bedside DS: Summary Hospital Course Reason for hospitalization: GI bleed, Hypotenstion, Hypokalemia, End of life care Hospital Course: Patient has come in from the [facility] with GI Bleeding at this point family has decided again any surgical intervention and or transferring to another facility. Patient has been treated with some comfort care and the family has decided again replenishing electrolytes and just keep patient comfortable. At this time we will be switching her to hospice care Residential Time Spent with Patient Time attestation: Total time spent providing and/or coordinating discharge services: Discharge Plan Discharge Attending physician on discharge: Al Guaman Consulting providers: Risa Brooks; Virginia Castillo Discharging Clinician: Virginia Castillo Anticipated Discharge Date/Time: 05/03/24 11:47 Patient Disposition: Hospice - Medical Facility Discharge Instructions: Per hospice recommendation Stand Alone Forms: General Discharge Information Discharge Medications: Discontinued ascorbic acid (vitamin C) 500 mg tablet 500 mg PO BID Qty: 90 3RF aspirin [Adult Aspirin Regimen] 81 mg tablet,delayed release (DR/EC) 81 mg PO DAILY Qty: 90 0RF atorvastatin 40 mg tablet 40 mg PO QHS Qty: 90 0RF Banatrol Plus Powder In Packet See Rx Instructions PO TID Qty: 75 0RF Rx Instructions: g tube orally three times a day; Garcinia Cambogia 200-500 mcg-mg tablet 1 tablet PO ONCE Qty: 90 0RF Jevity 1.5 John 0.06 gram-1.5 kcal/mL liquid See Rx Instructions .ROUTE .COMPLEX Qty: 237 0RF Rx Instructions: g tube; metoprolol tartrate 25 mg tablet 12.5 mg PO BID Qty: 90 0RF omeprazole magnesium 10 mg susp,delayed release for recon 20 mg PO DAILY Qty: 30 0RF calcium carbonate [Calcium 600] 600 mg calcium (1,500 mg) tablet 600 mg PO DAILY Qty: 90 0RF protein [ProSource] Powder See Rx Instructions PO .COMPLEX Qty: 454 0RF Rx Instructions: g tube orally; semaglutide 3 mg tablet 3 mg PO DAILY 30 Days Qty: 30 0RF vitamin A 2,400 mcg capsule 2,400 mcg PO DAILY Qty: 90 0RF rivaroxaban 20 mg tablet 20 mg PO QPM Qty: 90 0RF Rx Instructions: must administer with evening meal lisinopril-hydrochlorothiazide [Zestoretic] 10-12.5 mg tablet 1 tablet PO DAILY Qty: 90 0RF sucralfate 1 gram tablet See Rx Instructions .ROUTE .COMPLEX Qty: 90 0RF Rx Instructions: g tube; give 10 ml via g tube before meals and at bedtime for indestion cholecalciferol (vitamin D3) [Vitamin D3] 125 mcg (5,000 unit) tablet 125 mcg DAILY hydrocodone-acetaminophen 5-325 mg tablet 1 tablet PO Q8H PRN (Reason: pain) Qty: 90 0RF gabapentin 250 mg/5 mL (5 mL) solution 100 mg PO BID Qty: 200 0RF No Action No Home Medications Date of admission: 05/02/24 14:02 Primary Care Provider: Bello Edmondson Admitting Provider: Al Guaman Attending physician on admission: Al Guaman Condition: Critical
--- NOTE | 2024-05-03 11:53 | PC.NURSE ---
pt discharging to be readmitted as hospice.
[2024-05-03 11:58] VITALS: O2SAT 89
== END 2024-05-03 11:56 | disposition hospice, inpatient (51) | DRG 378 ==
LOC: CHSED 11:10 → CHS2ND 11:42
PROVIDERS: Admitting Provider Internal Medicine; Emergency Provider Emergency Medicine; PCP Family Medicine; Visit Provider Internal Medicine
DX: K92.2 Gastrointestinal hemorrhage, unspecified (principal); I48.20 Chronic atrial fibrillation, unspecified; I10 Essential (primary) hypertension; I95.9 Hypotension, unspecified; E11.9 Type 2 diabetes mellitus without complications; E78.5 Hyperlipidemia, unspecified; M19.90 Unspecified osteoarthritis, unspecified site; F03.90 Unspecified dementia, unspecified severity, without behavioral disturbance, psychotic disturbance, mood disturbance, and anxiety; I69.320 Aphasia following cerebral infarction; I69.391 Dysphagia following cerebral infarction; Z93.1 Gastrostomy status; Z79.82 Long term (current) use of aspirin; Z79.01 Long term (current) use of anticoagulants; Z51.5 Encounter for palliative care
CPT/HCPCS: 36415; 80053; 85025; 85610; 85730; 86850; 86900; 86901; 96361; 96374; 96375; 96376; 99285; A9270; G0378; J2060; J2270; J2405; J2470; J7030

== ENCOUNTER 2024-05-03 11:57 | HOS | payer OTHER, SELFPAY ==
--- NOTE | 2024-05-03 11:57 | PC.NURSE ---
Pt transitioned from inpatient to hospice. Physical assessment deferred at this time. See previous chart for am assessment.
[2024-05-03 12:00] VITALS: O2SAT 90; BMI 23.6
[2024-05-03] MEDS: MORPHINE SULFATE (*CRX) 2 MG/ML INJ IV PUSH ×6 (12:44→21:58)
[2024-05-03] MEDS: LORazepam INJ (*CRX) 2 MG/ML VIAL 1 MG IV PUSH ×3 (14:48→21:58)
[2024-05-03 17:32] VITALS: BP 70/37; PULSE 110; RESP 16; TEMP 36.5; O2SAT 93
[2024-05-03 19:44] VITALS: O2SAT 92
[2024-05-03 21:30] VITALS: RESP 14; TEMP 36.6; O2SAT 91
--- NOTE | 2024-05-03 21:30 | PC.NURSE ---
Patient unresponsive. Respirations shallow @ 14. SpO2 @ 90% on O2 @ 2 lpm/nc. Small periods of apnea noted occasionally. Color remains pink. No mottling noted. Morphine being given every 2 hours and Ativan every 4 hours @ this time. Multiple family members @ bedside.
[2024-05-04] MEDS: MORPHINE SULFATE (*CRX) 2 MG/ML INJ IV PUSH ×5 (00:01→08:02)
[2024-05-04 00:13] VITALS: PULSE 104; RESP 10; O2SAT 91
[2024-05-04] MEDS: LORazepam INJ (*CRX) 2 MG/ML VIAL 1 MG IV PUSH ×2 (01:56→05:56)
--- NOTE | 2024-05-04 02:10 | PC.NURSE ---
Patient remains unresponsive. Color pink. No mottling noted. Respirations now @ 8 with SpO2 @ 91% and short periods of apnea noted. Morphine and Ativan continue. 2 granddaughters sleeping in bed A.
[2024-05-04 04:00] VITALS: PULSE 108; RESP 8; TEMP 36.4; O2SAT 90
--- NOTE | 2024-05-04 04:03 | PC.NURSE ---
Patient remains unresponsive. Color pink. Skim w/d. Respirations remain shallow @ 8 with occasional short periods of apnea noted. No mottling noted. O2 continues @ 2 lpm/nc. Daughter @ bedside and 2 granddaughters sleeping in bed A. Morphine given as ordered. Mouth care done.
--- NOTE | 2024-05-04 06:59 | P.HP_ITS ---
H&P: HPI History of Present Illness Date/Time: 05/04/24 06:59 Chief Complaint: Hospice , end of life care, GI bleed Narrative: [facility]. Patient has been discharged as inpatient and is being placed on inpatient hospice ccare with [facility], She presented to the [facility] room with a GI Bleed, Hypokalemia, Hypotension. Patient is not a candidate for surgery at this time due to her co morbidity and family wants nothing else done except for comfort care. [facility] Past Medical History Medical History (Updated 05/02/24 @ 12:14 by Virginia Castillo NP) Afib Arthritis CVA (cerebral vascular accident) Dementia Hypertension Type 2 diabetes mellitus Social History Social History Smoking packs per day: 1 Smoking cigarettes per day: 20.0 Years smoked: 20 Smoking pack-years: 20.00 Smoking status: Former smoker Tobacco type: cigarettes Second hand tobacco smoke exposure: No Smoking end date: 04/27/24 Alcohol intake: unknown Alcohol use details: WINE MAYBE TWICE A YEAR Substance use: never Substance use type: does not use Living arrangements: alone Spiritual care concerns: No Meds Home Medications and Allergies Home Medications Medication Instructions Recorded Confirmed Type No Home Medications 05/03/24 05/03/24 History Allergies Allergy/AdvReac Type Severity Reaction Status Date / Time Latex, Natural Rubber AdvReac Unknown Verified 05/01/24 11:07 Penicillins AdvReac Hives/POSSIBLE Verified 05/01/24 11:07 THROAT SWELLING Vital Signs Vital Signs - 24 hr 05/03/24 12:00 05/03/24 17:32 05/03/24 19:44 Temperature 97.7 F Pulse Rate 110 H Respiratory Rate 16 Blood Pressure 70/37 L Pulse Oximetry 90 93 92 Oxygen Delivery Nasal Cannula Nasal Cannula Nasal Cannula Oxygen Flow Rate 4 2 2 05/03/24 21:30 05/04/24 00:13 05/03/24 12:00 Temperature 97.8 F Pulse Rate 104 H Respiratory Rate 14 10 L Blood Pressure Pulse Oximetry 91 91 90 Oxygen Delivery Nasal Cannula Nasal Cannula Oxygen Flow Rate 2 2 05/04/24 04:00 Temperature 97.6 F Pulse Rate 108 H Respiratory Rate 8 L Blood Pressure Pulse Oximetry 90 Oxygen Delivery Nasal Cannula Oxygen Flow Rate 2 Exam Const: General: no acute distress Resp: Auscultation: diminished lung sounds Cardio: Rate: bradycardic GI: Inspection: distended Skin: General skin exam: normal color (Pale color) Psych: Mental Status: mental status grossly normal (Unresponsive ) Assessment and Plan Assessment and plan (1) End of life care: Code(s): Z51.5 - Encounter for palliative care Status: Acute Assessment and Plan: pt on [facility] hospice Ativan, Morphine , Atropine, Scopolamine, oxygen family at the bedside Vitals as need
[2024-05-04] MEDS: SCOPOLAMINE 1 MG PATCH 1 PATCH TRANSDERM (08:01)
[2024-05-04] MEDS: ATROPINE SULFATE 1% OPHTH SOLN 5 ML BOTTLE 2 DROP SUBLINGUAL ×2 (08:02→09:09)
--- NOTE | 2024-05-04 09:22 | PC.NURSE ---
Pt's son Shahid came to desk and reported he thought patient had taken her last breath. Upon auscultation, pt had no heart beat. Hospice nurse, Ashly arrived on the floor at that time and was notified.
[2024-05-04 09:30] VITALS: O2SAT 0
--- NOTE | 2024-05-04 10:14 | PM.DDS ---
Discharge Summary Date and Time Date of : 05/04/24 Time of : 09:22 Provider Pronounced By: 2 RNs Name of First RN That Pronounced: Lianne Mao RN Name of Second RN That Pronounced: Ashly Lockett, residential program manager, Cuca Oconnor RN Probable Cause of Probable Cause of : GI Bleed , Hypokalemia, Respiratory failure Summary Hospital Course: Patient was admitted to hospice for comfort care yesterday with the presenting symptoms gastrointestinal GI bleed hypokalemia low potassium level and respiratory distress hospital course the patient was admitted to hospice care yesterday due to presenting symptoms she was already recieving comfort care measure , the past on the 921 . Family was at the bedside because of the patient underlying condition and overall decline fromt he GI bleed , Hypokalemia and hypotension. Patient was treated with supplemental oxygen, Ativan and morphine. Additional Data Confirmation of as documented by pronouncing clinician: Pupillary Reflex, Palpable Pulses, Response to Stimuli, Heart Tones and Breath Sounds Name of Provider Notified: Virginia Castillo Time Provider Notified: 09:31 Provider Requests Autopsy: No Family Requests Autopsy: No Date [facility] Notified of : 05/04/24 Time [facility] Notified of : 09:40 Advance directives: Yes Hospice patient?: Yes ([place])
--- NOTE | 2024-05-04 11:55 | PC.NURSE ---
Patient released to Roland Sethi of [facility].
--- NOTE | 2024-06-12 09:30 | PC.NURSE ---
Upon review of record, family did not request an autopsy as was marked in the assessment, unable to edit document
== END 2024-05-04 09:22 | disposition expired | DRG 951 ==
PROVIDERS: Admitting Provider Internal Medicine; PCP Family Medicine; Visit Provider Internal Medicine
DX: Z51.5 Encounter for palliative care (principal); K92.2 Gastrointestinal hemorrhage, unspecified; I48.20 Chronic atrial fibrillation, unspecified; I95.9 Hypotension, unspecified; I10 Essential (primary) hypertension; E11.9 Type 2 diabetes mellitus without complications; E87.6 Hypokalemia; M19.90 Unspecified osteoarthritis, unspecified site; F03.90 Unspecified dementia, unspecified severity, without behavioral disturbance, psychotic disturbance, mood disturbance, and anxiety
CPT/HCPCS: A9270; J2060; J2270